=== PATIENT | male | born 1950 | race Caucasian/White ===

== ENCOUNTER 2018-09-28 08:20 | Day surgery (SDC) | payer BC ==
--- NOTE | 2018-09-26 17:22 | RAD REPORT ---
EXAM DESCRIPTION: RAD - Chest Pa And Lat (2 Views) - 09/26/2018 5:10 pm CLINICAL HISTORY: Preop chest, pending cardiac catheterization common no acute respiratory symptoms detailed COMPARISON: February 2013 TECHNIQUE: PA and lateral views of the chest were obtained. FINDINGS: The lungs are normal volume. No peripheral mass or consolidation. Heart size is normal. Up per lobe vasculature within normal limits. Interstitial markings in each lower lung field all are pro minent compared to the prior study. Over this long interval this could be progressive fibrosis. A mil d interstitial edema or infiltrate cannot be excluded if the patient has any respiratory symptoms. Si gnificant failure or volume overload are doubtful. No pleural effusion or pneumothorax seen. No ac luly bony finding noted. No aortic abnormality. IMPRESSION: No peripheral mass or consolidation seen. Heart size is normal. Interstitial markings at each base are prominent compared to 2012. This may be a new baseline for the patient. Mild interstitial edema or infiltrate would not be suspected without matching clinical pres entation.
[2018-09-26 17:49] LABS: Protime INR 0.96
[2018-09-26 17:57] LABS: Absolute Lymphocytes (CBC) 1.5 K/uL (0.7-4.9); Absolute Monocytes 0.6 K/uL (0.1-1.3); Absolute Neutrophil 4.9 K/uL (1.8-8.0); Hematocrit 49.8 % (39.6-49.0); Lymphocytes % 20.2 % (15.3-44.8); MCH 30.6 pg (27.0-35.0); MCV 89.7 fL (80-100); MPV 8.9 fL (7.6-11.3); Monocytes % 8.5 % (3.3-12.3); RBC Red Blood Cell Count 5.56 M/uL (4.33-5.43)
[2018-09-26 18:09] LABS: Potassium 4.2 mmol/L (3.5-5.1)
--- OUTSIDE RECORDS SUMMARY | 2018-09-28 08:24 | XMS REPORT | Continuity of Care Document ---
:1950 Author Organization Interface Problems Problem Status Onset Date Classification Date Comments Source Reported Medications Medication Details Route Status Patient Ordering Order Source Instructions Provider Date Allergies, Adverse Reactions, Alerts Substance Category Reaction Severity Reaction Status Date Comments Source type Reported Immunizations Immunization Date Given Site Status Last Updated Comments Source Results Order Results Value Reference Date Interpretation Comments Source Name Range Vital Signs Vital Sign Value Date Comments Source Encounters Location Location Encounter Encounter Reason Attending ADM DC Status Source Details Type Number For Provider Date Date Visit Outpatient [id number] [place] 09/01 [facility] Outpatient [id number] [place] 08/31 [facility] [place] Procedures Procedure Code Date Perfomer Comments Source
[2018-09-28] MEDS ORDERED: NA CHLORIDE 0.9% 500 ML ONE (08:32)
[2018-09-28] MEDS ORDERED: HEPA 1000U/500MLS 2,000 UNIT/1,000 ML BAG IV ONE (09:24)
[2018-09-28] MEDS ORDERED: FENTANYL CITR 100 MCG/2 ML ONE (09:25)
[2018-09-28] MEDS ORDERED: MIDAZOLAM HCL 2 MG/2 ML INJ ONE (09:25)
[2018-09-28 11:52] VITALS: BP 102/62; TEMP 98.4; O2SAT 97
--- NOTE | 2018-09-28 21:33 | OP ---
Surgeon: Ricardo Traore MD The patient of Dr. Pena. He is 68 years old. I have seen him in the past for coronary artery disease and stents and bypass. He came into the office with unstable angina, was scheduled to come in today as an outpatient for a heart catheterization today. He was [facility] 09/28/2018 , prepped and draped in the routine sterile fashion, given 4 mg of Versed and 100 mg of fentanyl for sedation. A 6-Burkinan sheath was introduced in the right common femoral artery. Angiogram there was normal. Angio-Seal was used to close the case. A 6-Burkinan Maria T catheter was used for the left ma in injection that showed 100% LAD, proximal 99% circumflex with an in-stent restenosis. A JR4 6-Fren ch Maria T was used and that revealed a normal right coronary artery, right dominant, very large vess el. Vein graft to the diagonal was patent and vein graft to the OM2 was patent. The distal anastomo sis of that graft with the [place] OM2 had a stent that was patent with 0% residual. The OSORIO was pat ent to the LAD. There were no complications. Blood Loss: 5 cc. Postoperative Diagnosis: Coronary artery disease, severe. Plan: Plan is for medical therapy. Operators: Ricardo Traore MD and Sabrina Frances. Total Conscious Sedation: 45 minutes. The patient will be sent home today after 2 hours of bedrest. I will see him in the office in 2 week sBuzz CABRERA/NORMA Voice ID: [id number] Report ID: [id number]
== END 2018-09-28 11:56 | disposition home or self-care (01) ==
LOC: CCL 08:20
PROC: B203YZZ Plain Radiography of Multiple Coronary Artery Bypass Grafts using Other Contrast (ICD-10-PCS; principal; 2018-09-28)
PROC: B208YZZ Plain Radiography of Left Internal Mammary Bypass Graft using Other Contrast (ICD-10-PCS; 2018-09-28)
DX: I25.110 Atherosclerotic heart disease of native coronary artery with unstable angina pectoris (principal); I25.700 Atherosclerosis of coronary artery bypass graft(s), unspecified, with unstable angina pectoris; I25.82 Chronic total occlusion of coronary artery; G47.33 Obstructive sleep apnea (adult) (pediatric); E78.6 Lipoprotein deficiency; Z95.5 Presence of coronary angioplasty implant and graft; Z87.891 Personal history of nicotine dependence; Z82.49 Family history of ischemic heart disease and other diseases of the circulatory system
CPT/HCPCS: 36415; 71046; 80048; 85025; 85610; 85730; 93455; C1760; C1893; J2250; J3010

== ENCOUNTER 2022-07-22 06:30 | Day surgery (SDC) | payer OTHER ==
--- NOTE | 2022-07-19 15:54 | RAD REPORT ---
EXAM DESCRIPTION: RAD - Chest Pa And Lat (2 Views) - 07/19/2022 3:41 pm CLINICAL HISTORY: PRE OPpending cardioversion COMPARISON: Two view chest September 2018 TECHNIQUE: Frontal and lateral views of the chest were obtained. FINDINGS: The lungs are clear of peripheral mass consolidation. No acute failure or volume overload seen. Patient has a prominent baseline interstitial pattern not clearly different from comparison. Sternotomy wires are in place. Trachea is in the midline. Mild left medical eventration is seen. Hea rt size is normal and central vasculature is within normal limits. No pleural effusion or pneumothor ax seen. No acute bony finding noted. No aortic abnormality. IMPRESSION: No acute cardiopulmonary process. Above detailed findings are similar to 2018 comparison.
[2022-07-19 16:05] LABS: Absolute Lymphocytes (CBC) 1.2 K/uL (0.7-4.9); Hematocrit 50.5 % (39.6-49.0); Lymphocytes % 14.3 % (15.3-44.8); MCV 89.8 fL (80-100); MPV 8.8 fL (7.6-11.3); RBC Red Blood Cell Count 5.63 M/uL (4.33-5.43)
[2022-07-19 16:06] LABS: Protime INR 1.19
[2022-07-19 16:20] LABS: Potassium 4.3 mmol/L (3.5-5.1)
[2022-07-19 16:23] LABS: SARS-CoV-2 Antigen Rapid Res Negative (Negative)
--- NOTE | 2022-07-20 08:15 | EKG ---
Test Date: 2022-07-19 Test Time: 15:05:45 Supervising Chef: MEHDI MEASUREMENT RESULTS: Intervals: Rate: 83 VA: QRSD: 90 QT: 370 QTc: 434 [place]: P: VA: QRS: 48 T: 127 INTERPRETIVE STATEMENTS: Atrial fibrillation with premature ventricular or aberrantly conducted complexes Cannot rule out Anterior infarct, age undetermined Abnormal ECG Compared to ECG 09/29/2017 17:22:10 Ventricular premature complex(es) now present Sinus rhythm no longer present Myocardial infarct finding still present Electronically Signed On 07-20-22 08:12:08 CDT by Ricardo Traore
[2022-07-22] MEDS ORDERED: FENTANYL CITR 100 MCG/2 ML ONE (07:00)
[2022-07-22] MEDS ORDERED: MIDAZOLAM HCL 10 ML ONE (07:01)
[2022-07-22] MEDS ORDERED: METOPROLOL TARTRATE 5 MG/5 ML INJ IV ONE (07:01)
[2022-07-22] MEDS ORDERED: ATROPINE SULF 1 MG/10 ML SYR IV ONE (07:01)
[2022-07-22] MEDS ORDERED: NA CHLORIDE 0.9% 500 ML ONE (07:26)
[2022-07-22] MEDS ORDERED: MIDAZOLAM HCL 2 MG/2 ML INJ ONE (07:35)
[2022-07-22] MEDS ORDERED: FLUMAZENIL 0.1 MG/ML (5 mL VIAL) IV ONE (07:35)
--- NOTE | 2022-07-22 09:22 | OP ---
Date of Procedure: 07/22/2022 Surgeon: Ricardo Traore MD Procedure: Direct current cardioversion. Indication: Atrial fibrillation. Mr. Bates is 72, history of atrial fibrillation that is new onset , on metoprolol and Eliquis with a fairly normal echocardiogram. No left atrial dilatation and no th rombus. Has been taking the anticoagulation for approximately 3 weeks. Has a history of CABG as wel l, hypertension, dyslipidemia. Procedure In Detail: Brought to the recovery room today as an outpatient. He received 9 mg of Verse d IV push, 1 shock of 200 joules and he converted to sinus rhythm. There were no complications or bl ood loss. Diagnosis: Successful direct current cardioversion from atrial fibrillation to sinus rhythm. We will continue metoprolol, continue Eliquis. If he goes back into atrial fibrillation, we will con carpenter assembler sotalol or amiodarone or ablation. Case was discussed with his . RICK/NORMA Voice ID: [id number] Report ID: [id number]
[2022-07-22 09:37] VITALS: BP 134/72; O2SAT 95
--- NOTE | 2022-07-23 13:59 | EKG ---
Test Date: 2022-07-22 Test Time: 08:00:48 Air Purifier Servicer: TW MEASUREMENT RESULTS: Intervals: Rate: 62 AK: 188 QRSD: 90 QT: 400 QTc: 406 [place]: P: 57 AK: 188 QRS: 52 T: 153 INTERPRETIVE STATEMENTS: Sinus rhythm with premature atrial complexes Nonspecific T wave abnormality Abnormal ECG Compared to ECG 07/19/2022 15:05:45 Atrial premature complex(es) now present T-wave abnormality now present Atrial fibrillation no longer present Ventricular premature complex(es) no longer present Myocardial infarct finding no longer present Electronically Signed On 07-23-22 13:57:45 CDT by Ariel Veras
== END 2022-07-22 09:15 | disposition home or self-care (01) ==
LOC: CCL 06:30
DX: I48.0 Paroxysmal atrial fibrillation (principal); I65.23 Occlusion and stenosis of bilateral carotid arteries; I25.110 Atherosclerotic heart disease of native coronary artery with unstable angina pectoris; I49.3 Ventricular premature depolarization; I10 Essential (primary) hypertension; G47.33 Obstructive sleep apnea (adult) (pediatric); E78.2 Mixed hyperlipidemia; E66.9 Obesity, unspecified; Z68.37 Body mass index [BMI] 37.0-37.9, adult; Z95.1 Presence of aortocoronary bypass graft; Z95.5 Presence of coronary angioplasty implant and graft; Z79.01 Long term (current) use of anticoagulants; Z79.899 Other long term (current) drug therapy; Z87.891 Personal history of nicotine dependence; Z20.822 Contact with and (suspected) exposure to COVID-19; Z82.49 Family history of ischemic heart disease and other diseases of the circulatory system
CPT/HCPCS: 36415; 71046; 80048; 85025; 85610; 85730; 87811; 92960; 93005; J2250; J3010; J7040

== ENCOUNTER 2022-12-16 12:18 | Day surgery (SDC) | payer OTHER ==
[2022-12-14 14:21] LABS: Absolute Lymphocytes (CBC) 1.3 K/uL (0.7-4.9); Hematocrit 50.4 % (39.6-49.0); MCV 89.5 fL (80-100); MPV 8.7 fL (7.6-11.3); RBC Red Blood Cell Count 5.63 M/uL (4.33-5.43)
[2022-12-14 14:25] LABS: Protime INR 1.42
[2022-12-14 14:31] LABS: Potassium 4.6 mmol/L (3.5-5.1)
--- NOTE | 2022-12-17 13:17 | EKG ---
Test Date: 2022-12-16 Test Time: 12:25:27 Director Of Global Marketing: JOSE MEASUREMENT RESULTS: Intervals: Rate: 49 IN: 206 QRSD: 98 QT: 470 QTc: 424 [place]: P: 41 IN: 206 QRS: 61 T: 113 INTERPRETIVE STATEMENTS: Marked sinus bradycardia with fusion complexes with ventricular escape complexes T wave abnormality, consider lateral ischemia Abnormal ECG Compared to ECG 07/22/2022 08:00:48 Fusion complex(es) now present Ventricular escape complex(es) now present Possible ischemia now present Sinus rhythm no longer present Atrial premature complex(es) no longer present T-wave abnormality still present Electronically Signed On 12-17-22 13:15:12 SURVEY ASSOCIATE by Ariel Veras
== END 2022-12-16 12:50 | disposition home or self-care (01) ==
LOC: CCL 12:18
PROVIDERS: ATTEND Internal Medicine
DX: I48.91 Unspecified atrial fibrillation (principal); Z53.8 Procedure and treatment not carried out for other reasons
CPT/HCPCS: 36415; 80048; 85025; 85610; 85730; 93005

== ENCOUNTER 2025-01-07 10:52 | Day surgery (SDC) | payer OTHER ==
--- NOTE | 2025-01-04 14:40 | RAD REPORT ---
Procedure: Chest Pa And Lat (2 Views) HISTORY: Preop for cardiac catheterization COMPARISON: 2021 FINDINGS: The lungs appear clear of acute infiltrate. No significant pleural effusion noted. The heart is mildly enlarged. Post surgical changes involve the chest IMPRESSION: No acute abnormality is displayed.
[2025-01-04 14:41] LABS: Absolute Basophils 0.1 K/uL (0-0.5); Absolute Eosinophils 0.1 K/uL (0-0.5); Absolute Lymphocytes (CBC) 1.7 K/uL (0.7-4.9); Absolute Monocytes 0.8 K/uL (0.1-1.3); Absolute Neutrophil 4.9 K/uL (1.8-8.0); Basophils % 1.3 % (0-1.3); Eosinophils % 1.9 % (0-4.4); Hematocrit 49.6 % (39.6-49.0); Hemoglobin 16.4 g/dL (13.6-17.9); Lymphocytes % 22.6 % (15.3-44.8); MCH 29.5 pg (27.0-35.0); MCV 89.4 fL (80-100); MPV 8.9 fL (7.6-11.3); Monocytes % 10.4 % (3.3-12.3); Neutrophils % 63.8 % (41.7-73.7); Nucleated Red Blood Cells % 0.1 % (0-0); Platelets 175 thou/uL (152-406); RBC Red Blood Cell Count 5.54 M/uL (4.33-5.43); Red Cell Distribution Width 15.2 % (12.1-15.2)
[2025-01-04 14:42] LABS: Anion Gap 6.8 mEq/L (5.0-15.0); Potassium 4.8 mEq/L (3.5-5.1)
[2025-01-04 14:44] LABS: PT Prothrombin Time 14.1 SECONDS (9.4-12.5); PTT, Activated Partial Thromb 42.9 SECONDS (24.3-36.9); Protime INR 1.35
[2025-01-07] MEDS ORDERED: NA CHLORIDE 0.9% 500 ML ONE (10:59)
[2025-01-07] MEDS ORDERED: HEPA 1000U/500MLS 2,000 UNIT/1,000 ML BAG IV ONE (11:11)
[2025-01-07] MEDS ORDERED: HEPARIN 10,000 UNIT/10 ML VIAL IV ONE ×2 (11:11→12:57)
[2025-01-07] MEDS ORDERED: LIDOCAINE 1% 20 ML MDV ONE (11:11)
[2025-01-07] MEDS ORDERED: MIDAZOLAM HCL 2 MG/2 ML INJ ONE (11:12)
[2025-01-07] MEDS ORDERED: CLOPIDOGREL 75 MG TABLET ONE (11:12)
[2025-01-07] MEDS ORDERED: TICAGRELOR 90 MG TABLET PO ONE (11:13)
[2025-01-07] MEDS ORDERED: ASPIRIN 325 MG TAB ONE (11:13)
[2025-01-07] MEDS ORDERED: FENTANYL CITR 100 MCG/2 ML ONE (11:13)
[2025-01-07] MEDS ORDERED: NALOXONE 0.4 MG/ML VIAL ONE (11:20)
[2025-01-07] MEDS ORDERED: FLUMAZENIL 0.1 MG/ML (5 mL VIAL) IV ONE (11:20)
[2025-01-07] MEDS ORDERED: ATROPINE SULF 1 MG/10 ML SYR IV ONE (11:20)
[2025-01-07 11:25] VITALS: TEMP 98.4
[2025-01-07] MEDS ORDERED: NITROGLYCERIN 0.4 MG/TAB SL ONE (13:32)
[2025-01-07 17:36] VITALS: BP 130/65; O2SAT 94
--- NOTE | 2025-01-11 19:27 | OP ---
Date of Procedure: 01/07/2025 Surgeon: LINN BAR Procedures Performed: 1. Selective coronary angiogram with bypass graft study. 2. PCI of severe distal RCA stenosis, used 3.5 x 16 mm, then 3.5 x 12 mm stent. 3. PCI of mid PLB branch severe stenosis, used 2.75 x 12 mm Synergy drug-eluting stent. 4. Failed PCI of OM1 branch. Indication: Unstable angina. Access: The right common femoral artery 6-[place] Konger closed with 6-[place] Angio-Seal. Complications: None. Bleeding: Less than 50 mL. Anesthesia: Total sedation time was 90 minutes, used fentanyl and Versed. Description Of Procedure: After risks, benefits, and alternatives were explained, the patient agreed to procedure and signed informed consent. The patient was brought into cardiac catheterization labo ratory, prepped and draped in a sterile fashion. Then, I accessed the right common femoral artery us ing micropuncture kit, ultrasound guidance, fluoroscopy; placed 6-[place] sheath and took 6-F rench JL4 diagnostic catheter over J-wire into the aortic root, engaged the left main, took standard views, and exchanged for 6-[place] JR4 catheter, engaged the RCA, SVG graft to OM and SVG to diagonal and OSORIO to LAD, took standard views, and then exchanged for 6-[place] JR4 guide, engaged the RCA, gav e systemic heparin to assure ACT level above 250, and took Runthrough wire into the RCA, placed it di stally, and first pre-dilated the PLB lesion and then placed 2.75 x 12 mm Synergy drug-eluting stent with excellent expansion, then pre-dilated the distal lesion using a 3.0 balloon, and lesion expanded very well, and then placed a 3.5 x 16 mm Synergy drug-eluting stent, and distally there was some haz iness, so placed another 3.5 x 12 mm Synergy drug-eluting stent with excellent expansion. Final anne ogram was satisfactory and removed the wire. Final angiogram was satisfactory. Then, removed the gu saad and the sheath, and 6-[place] Angio-Seal was used for closure with good hemostasis. Findings: 1. Coronary angiogram. a. Left main is normal. b. 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 c. The left circumflex proximal 90% stenosis, the OM has COLLECTION SYSTEMS ADMINISTRATOR ostially. d. RCA proximal 40%, mid 40% stenosis, distal 80% to 90% stenosis, status post successful PCI as above and the PLB in the mid segment has 90% stenosis, status post successful PCI. 2. Bypass graft study. a. Patent OSORIO to LAD. b. Patent SVG to diagonal 1. c. Patent SVG to OM, but with a slow flow as OM is 100% occluded. Then, we took a 6-Hong Konger EBU3. 5 guide into aortic root, engaged left main, and took Runthrough wire into the left circumflex into t he OM1 and I could not cross the stenosis. Decided to abort the PCI of the OM. Conclusion: 1. CTA of severe multivessel [place] coronary artery disease with patent SVG graft to diagonal 1 to OM and OSORIO to LAD. 2. Severe RCA disease in PLB, status post successful PCI as above. Plan: Dual antiplatelet therapy and high-dose statin. Follow up in the office in 1 week post discha rge. KIDD/NORMA Voice ID: [id number] Report ID: [id number]
== END 2025-01-07 17:40 | disposition home or self-care (01) ==
LOC: CCL 10:52
PROVIDERS: ATTEND Internal Medicine
DX: I25.110 Atherosclerotic heart disease of native coronary artery with unstable angina pectoris (principal); I25.82 Chronic total occlusion of coronary artery; I34.0 Nonrheumatic mitral (valve) insufficiency; I35.1 Nonrheumatic aortic (valve) insufficiency; I48.11 Longstanding persistent atrial fibrillation; I65.23 Occlusion and stenosis of bilateral carotid arteries; G47.33 Obstructive sleep apnea (adult) (pediatric); E78.2 Mixed hyperlipidemia; Z95.5 Presence of coronary angioplasty implant and graft; Z87.891 Personal history of nicotine dependence; Z79.01 Long term (current) use of anticoagulants; Z79.899 Other long term (current) drug therapy; Z82.49 Family history of ischemic heart disease and other diseases of the circulatory system
CPT/HCPCS: 85025; 80048; 36415; 85610; 82947; 85347 ×2; 85730; 71046; 93455; 76937; C1893; Q9967; C1725; C1877; C9601; C9600; J2003; J2250; J3010; J7040; 99152; 99153; J0461; J2310

== ENCOUNTER 2025-08-11 11:55 | Emergency (ER) | payer OTHER ==
[2025-08-11 13:30] LABS: Absolute Lymphocytes (CBC) 1.4 K/uL (0.7-4.9); Hematocrit 48.1 % (39.6-49.0); Hemoglobin 15.9 g/dL (13.6-17.9); MCH 29.5 pg (27.0-35.0); MCHC 33.0 g/dL (32.0-36.0); MCV 89.3 fL (80-100); MPV 8.7 fL (7.6-11.3); Nucleated RBC Absolute Count 0.0 (0-0); Nucleated Red Blood Cells % 0.0 % (0-0); RBC Red Blood Cell Count 5.39 M/uL (4.33-5.43); White Blood Count 8.50 thou/uL (4.3-10.9)
[2025-08-11 13:42] LABS: PT Prothrombin Time 14.4 SECONDS (10-13.0); PTT, Activated Partial Thromb 32.2 SECONDS (27.2-37.4); Protime INR 1.28
[2025-08-11 13:50] LABS: ALT/SGPT 37.0 U/L (16-61); AST/SGOT 25.0 U/L (15-37); Albumin 3.5 g/dL (3.4-5.0); Albumin/Globulin Ratio 1.0 (1.1-1.8); Alkaline Phosphatase 36.0 U/L (45-117); Anion Gap 8.8 mEq/L (5.0-15.0); BUN Blood Urea Nitrogen 21.0 mg/dL (7-18); Globulin 3.4 g/dL (2.3-3.5); Glucose Level 186.0 mg/dL (74-106); Lipase 22.0 U/L (13-75); Potassium 4.8 mEq/L (3.5-5.1)
--- NOTE | 2025-08-11 15:10 | RAD REPORT ---
EXAMINATION: Abdomen Pelvis Wo Contrast CLINICAL INDICATION: Male, 75 years old.LOWER GI BLEED TECHNIQUE: CTA abdomen and pelvis was performed, before and after the administration of IV contrast, as per department protocol. MIPS were created. Axial, sagittal and coronal reconstructions were obtained. One or more of the following dose reduction techniques were used: Automated exposure contro l, adjustment of the mA and/or kV according to patient size, and/or iterative reconstruction. Unless otherwise specified, incidental findings do not require dedicated imaging follow-up. [id number]. COMPARISON: 08/11/2025 FINDINGS: LOWER CHEST: No acute process identified.No significant pericardial effusion. Aortic valve calcificat ions. UPPER GI: No significant abnormality. LIVER: No significant focal abnormality. GALLBLADDER/BILE DUCTS: No biliary ductal dilatation.? PANCREAS: No mass, ductal dilation, or cinda-pancreatic fluid. SPLEEN: Unremarkable. ADRENALS: No adrenal masses. KIDNEYS AND URETERS: No hydronephrosis.Low density and/or too small to characterize renal lesions whi ch are statistically benign.No renal calculi.No ureteral calculi. ABDOMINAL AORTA AND OTHER VESSELS: Moderate atherosclerotic changes without aortic aneurysm. PERITONEUM: No abnormal free fluid. No free air. LYMPH NODES: No pathologic lymphadenopathy. ABDOMINAL WALL: Unremarkable SMALL BOWEL/COLON: Dense contents present within the distal sigmoid and rectum. No evidence of active intraluminal bleeding. URINARY BLADDER: Circumferential thickening which may be secondary to chronic bladder outlet obstruct ion. [place] bladder calculus measuring 13 mm. REPRODUCTIVE ORGANS: Moderate prostatomegaly. Prominent vessels along the bladder apex. MUSCULOSKELETAL: Multilevel degenerative changes in the spine. No acute fracture. ADDITIONAL FINDINGS: None. IMPRESSION: Dense intraluminal contents within the distal sigmoid and rectum may be related to hematochezia. No e vidence of active intraluminal bleeding by CT. Moderate prostatomegaly. Likely chronic bilateral obstruction. [place] bladder calculus.
--- NOTE | 2025-08-11 15:48 | EDPHYS ---
Physician Documentation [facility] Name: Clay Bates III Age: 75 yrs Sex: Male : 1950 Arrival Date: 08/11/2025 Time: 11:55 Bed 25 Private MD: ED Physician Juan Carlos Moore HPI: 08/11 12:35 This 75 yrs old Male presents to ER via Unassigned with complaints of Bloody Stools, rn Urinary Problem. 12:35 Patient reports several bloody bowel movements, dark red, loose. Patient states he rn knows he ate 2 pieces of bad burrell yesterday. No fever or vomiting. No chills. Reports bloody diarrhea with abdominal cramping. On Eliquis. Recently had prostate biopsy and had hematuria briefly but reports clearing. Denies dyspnea or dizziness.. Historical: - Allergies: 12:36 No Known Allergies; jl7 - Home Meds: 12:36 Eliquis oral [Active]; jl7 - PMHx: 12:36 Atrial fibrillation; jl7 - Immunization history:: Adult Immunizations unknown. - Infectious Disease History:: Denies. - Family history:: not pertinent. - Social history:: Smoking status: Patient denies any tobacco usage or history of. - Hospitalizations: : No recent hospitalization is reported. ROS: 12:35 Constitutional: Negative for fever, chills, and weight loss, Cardiovascular: Negative rn for chest pain, palpitations, and edema, Respiratory: Negative for shortness of breath, cough, wheezing, and pleuritic chest pain, Abdomen/GI: Positive for GI bleeding and abdominal cramping MS/Extremity: Negative for injury and deformity, Skin: Negative for injury, rash, and discoloration, Neuro: Positive for generalized malaise Exam: 12:35 Constitutional: This is a well developed, well nourished patient who is awake, alert, rn and in no acute distress. Cardiovascular: Regular rate and rhythm. No pulse deficits. Respiratory: No increased work of breathing, no retractions or nasal flaring. Abdomen/GI: Soft, non-tender MS/ Extremity: Pulses equal, no cyanosis. Neuro: Awake and alert, GCS 15 Vital Signs: 12:28 BP 140 / 78; Pulse 75; Resp 18; Pulse Ox 96% ; kj2 13:30 BP 119 / 62; Pulse 70; Resp 18; Pulse Ox 94% on R/A; kj2 14:30 BP 110 / 70; Pulse 70; Resp 20; Pulse Ox 98% on R/A; kj2 16:26 BP 115 / 73; Pulse 72; Resp 18; Pulse Ox 98% on R/A; kj2 17:44 BP 110 / 76; Pulse 71; Resp 20; Pulse Ox 96% on R/A; kj2 18:20 BP 112 / 67; Pulse 68; Resp 18; Temp 98; Pulse Ox 97% ; kj2 MDM: 12:00 Medical Screening Exam initiated rn 15:46 Differential diagnosis: diverticulitis, Lower GI bleed, AVM, diverticulosis. Data rn reviewed: vital signs, nurses notes, lab test result(s), radiologic studies, CT scan, and as a result, I will admit patient. Consideration of Admission/Observation Patient was admitted/placed on observation. Escalation of care including admission/observation considered. Independent interpretation of the following test(s) in the Emergency Department CT Scan: My interpretation is CT scan images negative for pneumoperitoneum per my interpretation, no obvious infection noted.. Care significantly affected by the following chronic conditions: Atrial fibrillation and on Eliquis. Counseling: I had a detailed discussion with the patient and/or guardian regarding the historical points, exam findings, and any diagnostic results supporting the discharge/admit diagnosis, lab results, radiology results, the need to transfer to another facility, for higher level of care, [facility] does not immediately have the required specialist. ED course: Normal H\T\H, CT angiogram is showing hyperdense material in the sigmoid colon, no GI here, will transfer for GI evaluation given unlikely to stop on its own on Eliquis. Patient has now had 4-5 bloody bowel movements since this morning.. 08/11 12:31 Order name: CBC with Diff; Complete Time: 14: rn 08/11 12:31 Order name: CMP; Complete Time: 14: rn 08/11 12:31 Order name: Lipase; Complete Time: 14: rn 08/11 12:31 Order name: Protime (+inr); Complete Time: 14: rn 08/11 12:31 Order name: Ptt, Activated; Complete Time: 14: rn 08/11 12:31 Order name: Lactate w/ 2H reflex if indic.; Complete Time: 14:08 rn 08/11 12:31 Order name: Type And Screen; Complete Time: 18:17 rn 08/11 12:31 Order name: CT Abdomen - Angio: Abdomen and pelvis angio; Complete Time: 15:24 rn 08/11 13:42 Order name: Pelvis Angio; Complete Time: 15:24 EDIN 08/11 13:42 Order name: Abdomen ; Complete Time: 15:24 EDIN 08/11 12:31 Order name: IV Saline Lock; Complete Time: 13:49 rn 08/11 12:31 Order name: Labs collected and sent; Complete Time: 13:49 rn 08/11 16:05 Order name: NPO; Complete Time: 16:13 rn Administered Medications: No medications were administered Disposition Summary: 08/11/25 15:48 Transfer Ordered Notes: Transfer Location: [facility] rn Reason: Higher level of care rn Condition: Stable rn Problem: new rn Symptoms: have improved rn Accepting Physician: (08/11/25 18:45) kj2 Diagnosis - GI Bleed/ Gastrointestinal hemorrhage, unspecified rn Forms: - Medication Reconciliation Form rn - SBAR form rn Signatures: Dispatcher [employer] EDIN Juan Carlos Moore MD MD rn Leal, Jahala RN RN jl7 Elizabeth Johnson RN RN kj2 Corrections: (The following items were deleted from the chart) 12:31 12:31 Abdomen Angio+CT.RAD.BRZ ordered. [facility] EDIN 12:31 12:31 TYPE AND SCREEN+BB.LAB.BRZ ordered. [facility] EDIN 12:36 12:35 Patient reports several bloody bowel movements, dark red, loose. Patient states rn he knows he ate 2 pieces of bad burrell yesterday. No fever or vomiting. No chills. Reports bloody diarrhea with abdominal cramping. On Eliquis. Recently had prostate biopsy and had hematuria briefly but reports clearing.. rn 18:45 15:48 rn kj2
--- NOTE | 2025-08-11 15:48 | ER ---
Nurse's Notes [facility] Name: Clay Bates III Age: 75 yrs Sex: Male : 1950 Arrival Date: 08/11/2025 Time: 11:55 Bed 25 Private MD: Diagnosis: GI Bleed/ Gastrointestinal hemorrhage, unspecified Presentation: 08/11 12:28 Acuity: ARVIND 3 kj2 12:36 Chief complaint: Patient states: Woke this morning with bloody stools, bright red. jl7 Coronavirus screen: At this time, the client does not indicate any symptoms associated with coronavirus-19. Ebola Screen: No symptoms or risks identified at this time. Initial Sepsis Screen: Does the patient meet any 2 criteria? No. Patient's initial sepsis screen is negative. Does the patient have a suspected source of infection? No. Patient's initial sepsis screen is negative. Risk Assessment: Do you want to hurt yourself or someone else? Patient reports no desire to harm self or others. Onset of symptoms was August 11, 2025. 12:36 Method Of Arrival: Wheelchair jl7 Triage Assessment: 12:36 General: Appears in no apparent distress. uncomfortable, Behavior is calm, cooperative, jl7 appropriate for age. Pain: Denies pain. GI: Reports bloody stool. Historical: - Allergies: 12:36 No Known Allergies; jl7 - Home Meds: 12:36 Eliquis oral [Active]; jl7 - PMHx: 12:36 Atrial fibrillation; jl7 - Immunization history:: Adult Immunizations unknown. - Infectious Disease History:: Denies. - Family history:: not pertinent. - Social history:: Smoking status: Patient denies any tobacco usage or history of. - Hospitalizations: : No recent hospitalization is reported. Screenin:27 [facility] ED Fall Risk Assessment (Adult) History of falling in the last 3 months, kj2 including since admission No falls in past 3 months (0 pts) Confusion or Disorientation No (0 pts) Intoxicated or Sedated No (0 pts) Impaired Gait No (0 pts) Mobility Assist Device Used No (0 pt) Altered Elimination No (0 pt) Score/Fall Risk Level 0 - 2 = Low Risk Maintained a safe environment, Hourly rounding (assess needs \T\ fall precautionary measures) done. Abuse screen: Denies threats or abuse. Denies injuries from another. Nutritional screening: No deficits noted. Tuberculosis screening: No symptoms or risk factors identified. Assessment: 12:40 General: Appears in no apparent distress. Behavior is cooperative. Pain:. Neuro: Level kj2 of Consciousness is awake, alert, obeys commands, Oriented to person, place. Cardiovascular: Patient's skin is warm and dry. Respiratory: Airway is patent. GI: Reports bloody stool, since this morning. : No signs and/or symptoms were reported regarding the genitourinary system. 13:30 Reassessment: Patient appears in no apparent distress at this time. Patient and/or kj2 family updated on plan of care and expected duration. Pain level reassessed. Patient is alert, oriented x 3, equal unlabored respirations, skin warm/dry/pink. 14:27 Reassessment: Patient appears in no apparent distress at this time. kj2 15:30 Reassessment: Patient appears in no apparent distress at this time. Patient and/or kj2 family updated on plan of care and expected duration. Pain level reassessed. Patient is alert, oriented x 3, equal unlabored respirations, skin warm/dry/pink. 16:25 Reassessment: 1st attempt placed on hold, no answer. kj2 16:27 Reassessment: Patient appears in no apparent distress at this time. Patient and/or kj2 family updated on plan of care and expected duration. Pain level reassessed. Patient is alert, oriented x 3, equal unlabored respirations, skin warm/dry/pink. 16:36 Reassessment: no answer to phone 2nd attempt for report. kj2 17:43 Reassessment: Patient appears in no apparent distress at this time. Patient and/or kj2 family updated on plan of care and expected duration. Pain level reassessed. Patient is alert, oriented x 3, equal unlabored respirations, skin warm/dry/pink. report given to ADRI [facility]. 18:20 Reassessment: Patient and/or family updated on plan of care and expected duration. Pain kj2 level reassessed. Vital Signs: 12:28 BP 140 / 78; Pulse 75; Resp 18; Pulse Ox 96% ; kj2 13:30 BP 119 / 62; Pulse 70; Resp 18; Pulse Ox 94% on R/A; kj2 14:30 BP 110 / 70; Pulse 70; Resp 20; Pulse Ox 98% on R/A; kj2 16:26 BP 115 / 73; Pulse 72; Resp 18; Pulse Ox 98% on R/A; kj2 17:44 BP 110 / 76; Pulse 71; Resp 20; Pulse Ox 96% on R/A; kj2 18:20 BP 112 / 67; Pulse 68; Resp 18; Temp 98; Pulse Ox 97% ; kj2 ED Course: 11:59 Patient arrived in ED. ts1 12:00 Juan Carlos Moore MD is Attending Physician. rn 12:26 Elizabeth Johnson RN is Primary Nurse. kj2 12:27 Patient has correct armband on for positive identification. Bed in low position. Call kj2 light in reach. Provided Education on: call light. 12:28 Triage completed. kj2 12:36 Arm band placed on right wrist. jl7 13:48 Initial lab(s) drawn, by ma, sent to lab. Inserted saline lock: 20 gauge in left rk3 antecubital area, using aseptic technique. Blood collected. Flushed with 10 mL NS. 14:49 CT Abdomen - Angio: Abdomen and pelvis angio In Process Unspecified. EDMS 14:49 Pelvis Angio In Process Unspecified. EDMS 14:49 Abdomen In Process Unspecified. EDMS 15:41 initiated a transfer with King from the [facility]. eb 16:04 connected the hospitalist child welfare consultant for [facility] with Dr. Moore for patient eb transfer consultation. 16:13 administrative approval given by King Rosario/ patient has been accepted to [facility] A-[id number] / Dr. Macy Bowman has accepted the patient in transfer/ report to be called to [phone]. 18:20 No provider procedures requiring assistance completed. Patient transferred, IV remains kj2 in place. Administered Medications: No medications were administered Medication: 14:12 VIS not applicable for this client. kj2 Outcome: 15:48 ER care complete, transfer ordered by . rn 18:20 Transferred by ground EMS kj2 18:20 Condition: stable 18:20 Instructed on the need for transfer, 18:45 Patient left the ED. kj2 Signatures: Dispatcher [employer] EDMS Juan Carlos Moore MD MD rn Leal, Jahala, RN RN jl7 Deysi Michelle Tanya, PAS PAS ts1 Elizabeth Johnson, RN RN kj2 Doreen Stout rk3 Corrections: (The following items were deleted from the chart) 16:34 15:30 Reassessment: Patient and/or family updated on plan of care and expected kj2 duration. Pain level reassessed. Patient is alert, oriented x 3, equal unlabored respirations, skin warm/dry/pink. kj2
[2025-08-11 19:51] VITALS: BP 112/67; TEMP 98; O2SAT 97
== END 2025-08-11 18:45 | disposition short-term general hospital (02) ==
LOC: ER 11:55
DX: K92.2 Gastrointestinal hemorrhage, unspecified (principal); I48.11 Longstanding persistent atrial fibrillation; Z79.01 Long term (current) use of anticoagulants
CPT/HCPCS: 85025; 36415; 86900; 86850; 85610; 86901; 83605; 85730; 83690; 80053; 72191; 74175; 74176; 99285; Q9967; 74174

== ENCOUNTER 2025-08-15 12:13 | Inpatient (IN) | payer OTHER ==
--- NOTE | 2025-08-15 13:50 | RAD REPORT ---
EXAMINATION: ONE VIEW CHEST XR CLINICAL INDICATION: CHEST PAIN TECHNIQUE: Frontal chest projection is submitted. Examination is limited by patient positioning and t echnique. COMPARISON: 01/04/2025 FINDINGS: Mild interstitial prominence seen suggestive of mild interstitial pulmonary edema. The heart is upper limit of normal in size. No displaced fractures identified. Sternotomy wires IMPRESSION: Mild CHF.
[2025-08-15 13:55] LABS: PT Prothrombin Time 13.1 SECONDS (10-13.0); Protime INR 1.16
[2025-08-15 14:06] LABS: Anion Gap 4.8 mEq/L (5.0-15.0); BUN Blood Urea Nitrogen 19.0 mg/dL (7-18); Glucose Level 109.0 mg/dL (74-106); NT PRO-BNP 1466.0 pg/mL (<125); Potassium 3.8 mEq/L (3.5-5.1)
[2025-08-15 14:14] LABS: Troponin High Sensitivity 1610.4 pg/mL (<58.9)
--- NOTE | 2025-08-15 14:30 | ER ---
Nurse's Notes [facility] Name: Clay Bates III Age: 75 yrs Sex: Male : 1950 Arrival Date: 08/15/2025 Time: 12:13 Bed 18 Private MD: Diagnosis: Subsequent non-ST elevation (NSTEMI) myocardial infarction Presentation: 08/15 12:40 Chief complaint: Patient states: Seen last week for GI bleed and sent to [facility]. me1 Stopped blood thinners and is still off of them. c/o mid sternal cp since Tuesday, 12/31 "tight". Denies SOB. Coronavirus screen: At this time, the client does not indicate any symptoms associated with coronavirus-19. Ebola Screen: No symptoms or risks identified at this time. Initial Sepsis Screen: Does the patient meet any 2 criteria? No. Patient's initial sepsis screen is negative. Does the patient have a suspected source of infection? No. Patient's initial sepsis screen is negative. Risk Assessment: Do you want to hurt yourself or someone else? Patient reports no desire to harm self or others. Onset of symptoms is unknown. 12:40 Method Of Arrival: Ambulatory ct1 12:40 Acuity: ARVIND 2 me1 Historical: - Allergies: 12:46 No Known Allergies; me1 - PMHx: 12:46 Atrial fibrillation; GI bleed (Unknown); Myocardial infarction; me1 - PSHx: 12:46 ablation (Atrial fibrillation); Coronary artery bypass graft; Coronary Angioplasty; me1 - Immunization history:: Adult Immunizations up to date. - Infectious Disease History:: Denies. - Social history:: Smoking status: Patient/guardian denies using tobacco, but has a distant history of tobacco abuse. - Family history:: not pertinent. - Hospitalizations: : No recent hospitalization is reported. Screenin:30 [facility] ED Fall Risk Assessment (Adult) History of falling in the last 3 months, rg5 including since admission No falls in past 3 months (0 pts) Confusion or Disorientation No (0 pts) Intoxicated or Sedated No (0 pts) Impaired Gait Yes (1 pt) Mobility Assist Device Used Yes (1 pt) Altered Elimination No (0 pt) Score/Fall Risk Level 0 - 2 = Low Risk Oriented to surroundings, Maintained a safe environment, Provided non-skid footwear, Hourly rounding (assess needs \\T\\ fall precautionary measures) done. Abuse screen: Denies threats or abuse. Nutritional screening: No deficits noted. Tuberculosis screening: No symptoms or risk factors identified. Assessment: 13:30 General: Appears in no apparent distress. comfortable, Behavior is calm, cooperative, rg5 appropriate for age. Pain: Complains of pain in chest Quality of pain is described as dull. 13:30 Neuro: Level of Consciousness is awake, alert, obeys commands, Oriented to person, rg5 place, time, situation. Cardiovascular: Reports chest pain, Patient's skin is warm and dry. Respiratory: Airway is patent Trachea midline Respiratory effort is even, unlabored. GI: Abdomen is round non-distended, Abd is soft and non tender. : No signs and/or symptoms were reported regarding the genitourinary system. EENT: No signs and/or symptoms were reported regarding the EENT system. Derm: Skin is intact, Skin is dry, Skin is normal. Musculoskeletal: Circulation, motion, and sensation intact. Range of motion:. 14:40 Reassessment: No changes from previously documented assessment. Patient and/or family rg5 updated on plan of care and expected duration. Pain level reassessed. Patient is alert, oriented x 3, equal unlabored respirations, skin warm/dry/pink. Vital Signs: 12:40 BP 121 / 60; Pulse 72; Resp 17; Temp 98.3; Pulse Ox 98% ; Weight 125.65 kg; Height 6 me1 ft. 0 in. ; Pain 2/10; 13:30 BP 100 / 59; Pulse 68; Resp 18; Pulse Ox 100% ; Pain 3/10; rg5 14:10 BP 104 / 48; Pulse 71; Resp 18; Pulse Ox 98% ; rg5 12:40 Body Mass Index 37.57 (125.65 kg, 182.88 cm) me1 12:40 Pain Scale: Adult me1 13:30 Pain Scale: Adult rg5 ED Course: 12:18 Patient arrived in ED. cj3 12:22 Juan Carlos Moore MD is Attending Physician. rn 12:46 Triage completed. me1 12:46 Arm band placed on Patient placed in waiting room. me1 13:06 Clive Haywood, ADRI is Primary Nurse. rg5 13:20 XRAY Chest (1 view) In Process Unspecified. EDMS 13:30 Patient has correct armband on for positive identification. Bed in low position. Call rg5 light in reach. Side rails up X 1. Client placed on continuous cardiac and pulse oximetry monitoring. NIBP monitoring applied. green promotions specialist on. Pulse ox on. NIBP on. Door closed. Noise minimized. 13:30 No provider procedures requiring assistance completed. Inserted saline lock: 20 gauge rg5 in right antecubital area, using aseptic technique. Blood collected. Flushed with 10 mL NS. Patient maintains SpO2 saturation greater than 95% on room air. 14:29 Yoshi Esquivel MD is Hospitalizing Provider. rn 15:00 Patient admitted, IV remains in place. intact, No redness/swelling at site. rg5 Administered Medications: 15:00 Drug: Aspirin PO Chewable Tablet 324 mg PO once; 81 mg tablets x 4 Route: PO; rg5 15:10 Follow up: Response: No adverse reaction rg5 15:00 Drug: Pantoprazole IVP 40 mg IVP once Route: IVP; Site: right antecubital; rg5 15:15 Follow up: Response: No adverse reaction rg5 15:10 Drug: Heparin (TX-Bolus No thrombolytic) - HEParin IVP 60 units/kg IVP once; Max 5000 rg5 units {Co-Signature: yanet (Kristine Arenas RN).} Route: IVP; Site: right antecubital; 15:10 Follow up: Response: No adverse reaction rg5 15:12 Drug: Heparin (TX Drip) 12 units/kg/[place] - ([place] [address] units, D5W IV 500 ml) IV at rg5 calculated rate Per protocol; Max initial rate 1000 units/hr {Co-Signature: hb (Kristine Arenas RN).} Route: IV; Rate: calculated rate; Site: right antecubital; 15:15 Follow up: IV Status: Infusion continued upon admission rg5 Medication: 13:30 VIS not applicable for this client. rg5 Outcome: 14:30 Decision to Hospitalize by Provider. rn 15:45 Admitted to ICU accompanied by nurse, via stretcher, on monitor, rg5 15:45 Condition: stable 15:45 Instructed on the need for admit, 15:59 Patient left the ED. rg5 Signatures: Dispatcher [employer] EDMS Moore Juan Carlos, MD MD rn Eddleman, Soo, RN RN me1 Clive Haywood RN RN 5 Litzy Tejada 3 Kristine Arenas RN Corrections: (The following items were deleted from the chart) 12:47 12:46 PSHx: Coronary artery bypass graft; me1 me1
--- NOTE | 2025-08-15 14:30 | EDPHYS ---
Physician Documentation [facility] Name: Clay Bates III Age: 75 yrs Sex: Male : 1950 Arrival Date: 08/15/2025 Time: 12:13 Bed 18 Private MD: ED Physician Juan Carlos Moore HPI: 08/15 13:32 This 75 yrs old Male presents to ER via Ambulatory with complaints of SENT BY YOSVANY. rn 13:32 Patient sent in by Dr. Veras for admission for evaluation of chest pain. Patient rn recently had GI bleed, taken off of his antiplatelet and Eliquis medication. Patient reports chest pain with exertion, not happening more frequently and not at rest. Nitroglycerin is helping chest pain.. Historical: - Allergies: 12:46 No Known Allergies; me1 - PMHx: 12:46 Atrial fibrillation; GI bleed (Unknown); Myocardial infarction; me1 - PSHx: 12:46 ablation (Atrial fibrillation); Coronary artery bypass graft; Coronary Angioplasty; me1 - Immunization history:: Adult Immunizations up to date. - Infectious Disease History:: Denies. - Social history:: Smoking status: Patient/guardian denies using tobacco, but has a distant history of tobacco abuse. - Family history:: not pertinent. - Hospitalizations: : No recent hospitalization is reported. ROS: 13:32 Constitutional: Negative for fever, chills, and weight loss, Cardiovascular: Negative rn for palpitations, and edema, Respiratory: Negative for shortness of breath, cough, wheezing, and pleuritic chest pain, Abdomen/GI: Negative for abdominal pain, nausea, vomiting, diarrhea, and constipation, MS/Extremity: Negative for injury and deformity, Skin: Negative for injury, rash, and discoloration, Neuro: Negative for headache, weakness, numbness, tingling, and seizure, Exam: 13:32 Constitutional: This is a well developed, well nourished patient who is awake, alert, rn and in no acute distress. Cardiovascular: Regular rate and rhythm. No pulse deficits. Respiratory: No increased work of breathing, no retractions or nasal flaring. Abdomen/GI: Soft, non-tender MS/ Extremity: Pulses equal, no cyanosis Neuro: Awake and alert, GCS 15 15:38 ECG was reviewed by the Attending Physician. rn Vital Signs: 12:40 BP 121 / 60; Pulse 72; Resp 17; Temp 98.3; Pulse Ox 98% ; Weight 125.65 kg; Height 6 me1 ft. 0 in. ; Pain 2/10; 13:30 BP 100 / 59; Pulse 68; Resp 18; Pulse Ox 100% ; Pain 3/10; rg5 14:10 BP 104 / 48; Pulse 71; Resp 18; Pulse Ox 98% ; rg5 12:40 Body Mass Index 37.57 (125.65 kg, 182.88 cm) me1 12:40 Pain Scale: Adult me1 13:30 Pain Scale: Adult rg5 MDM: 12:22 Medical Screening Exam initiated rn 14:24 Management of patient was discussed with the following: Requisition Approver: Discussed case with rn Dr. Gomez, recommends heparin infusion for non-STEMI, can stop if he starts to bleed.. 14:26 Differential diagnosis: acute myocardial infarction, acute pericarditis, coronary rn artery disease stable angina, unstable angina. HEART Score: History: Highly Suspicious (2), ECG: Non specific repolarization disturbance / LBTB / PM (1), Age: > or = 65 years (2), Risk Factors: > or = 3 Risk factors for atherosclerotic disease (2), Troponin: > or = 3 x Normal Limit (2), Total Score = 9. The patient was given aspirin in the Emergency Department. Data reviewed: vital signs, nurses notes, lab test result(s), EKG, radiologic studies, plain films, and as a result, I will admit patient. Consideration of Admission/Observation Patient was admitted/placed on observation. Escalation of care including admission/observation considered. Independent interpretation of the following test(s) in the Emergency Department EKG: See my EKG interpretation above X-Ray: My interpretation is Chest x-ray images negative for pneumonia or pneumothorax per my interpretation. 14:28 Test considered but Not performed: Other Details Echo. Care significantly affected by rn the following chronic conditions: Atrial fibrillation, GI bleed. Counseling: I had a detailed discussion with the patient and/or guardian regarding the historical points, exam findings, and any diagnostic results supporting the discharge/admit diagnosis, lab results, radiology results, the need for further work-up and treatment in the hospital. 14:30 ED course: Care complicated by the fact that he had a recent GI bleed and taken off his rn anticoagulation, patient with non-STEMI and requires anticoagulation at this time. Will have to heparinize him in preparation for cath tomorrow, heparin can be stopped quickly if starts to bleed.. 08/15 12:22 Order name: Basic Metabolic Panel; Complete Time: 14:20 08/15 12:22 Order name: CBC with Diff 08/15 12:22 Order name: NT PRO-BNP; Complete Time: 14:20 08/15 12:22 Order name: PT-INR; Complete Time: 14:01 08/15 12:22 Order name: Troponin HS; Complete Time: 14:20 08/15 14:27 Order name: Ptt, Activated rg5 08/15 14:55 Order name: Basic Metabolic Panel [facility] 08/15 14:55 Order name: CBC with Automated Diff [facility] 08/15 14:55 Order name: Lipid Profile [facility] 08/15 14:55 Order name: Lipid Profile [facility] 08/15 14:55 Order name: Troponin High Sensitivity [facility] 08/15 14:55 Order name: Troponin High Sensitivity [facility] 08/15 14:55 Order name: Troponin High Sensitivity [facility] 08/15 14:55 Order name: Troponin High Sensitivity [facility] 08/15 14:55 Order name: Troponin High Sensitivity [facility] 08/15 12:22 Order name: XRAY Chest (1 view); Complete Time: 13:54 08/15 14:55 Order name: Echo with Doppler [facility] 08/15 12:22 Order name: EKG; Complete Time: 12:22 08/15 14:55 Order name: CONS Physician Consult [facility] 08/15 12:22 Order name: Cardiac monitoring; Complete Time: 13:49 08/15 12:22 Order name: EKG - Nurse/Tech; Complete Time: 14:12 08/15 12:22 Order name: IV Saline Lock; Complete Time: 13:49 rn 08/15 12:22 Order name: Labs collected and sent; Complete Time: 13:49 rn 08/15 12:22 Order name: O2 Per Protocol; Complete Time: 13:49 08/15 12:22 Order name: O2 Sat Monitoring; Complete Time: 13:49 rn EC:38 Rate is 63 beats/min. Rhythm is regular. QRS interval is prolonged at 140 msec. QT rn interval is normal. No Q waves. T waves are Normal. No ST changes noted. Clinical impression: NSR w/ Non-specific ST/T Changes. Interpreted by me. Reviewed by me. Administered Medications: 15:00 Drug: Aspirin PO Chewable Tablet 324 mg PO once; 81 mg tablets x 4 Route: PO; rg5 15:10 Follow up: Response: No adverse reaction rg5 15:00 Drug: Pantoprazole IVP 40 mg IVP once Route: IVP; Site: right antecubital; rg5 15:15 Follow up: Response: No adverse reaction rg5 15:10 Drug: Heparin (GA-Bolus No thrombolytic) - HEParin IVP 60 units/kg IVP once; Max 5000 rg5 units {Co-Signature: yanet (Kristine Arenas RN).} Route: IVP; Site: right antecubital; 15:10 Follow up: Response: No adverse reaction rg5 15:12 Drug: Heparin (GA Drip) 12 units/kg/[place] - ([place] [address] units, D5W IV 500 ml) IV at rg5 calculated rate Per protocol; Max initial rate 1000 units/hr {Co-Signature: yanet (Kristine Arenas RN).} Route: IV; Rate: calculated rate; Site: right antecubital; 15:15 Follow up: IV Status: Infusion continued upon admission rg5 Disposition: 14:28 Critical Care:. 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 Total time: 35 rn minutes Signatures: Dispatcher [employer] Juan Carlos Estrella MD MD rn [place]son, Breana [facility] Soo Davalos RN RN ia1 Clive Haywood RN RN 5 Arenas, Kristine RN hb Corrections: (The following items were deleted from the chart) 12:47 12:46 PSHx: Coronary artery bypass graft; me1 me1 15:03 14:30 Telemetry/MedSurg (Inpatient) pedro [email or web address] 15:03 14:30 [place]
[2025-08-15] MEDS ORDERED: HEPARIN/D5W 25,000 UNIT/500 ML BAG IV ONE (14:49)
[2025-08-15] MEDS ORDERED: HEPARIN 5000 UNIT/ML 1 ML VIAL ONE (14:49)
[2025-08-15] MEDS ORDERED: MORPHINE 4 MG/ML SYR IV PRN (14:49)
[2025-08-15] MEDS ORDERED: ASPIRIN 81 MG CHEWABLE TABLET ONE (14:49)
[2025-08-15] MEDS ORDERED: PANTOPRAZOLE 40 MG INJ ONE (14:54)
--- NOTE | 2025-08-15 14:58 | P.HP ---
Patient History Date of Service: 08/15/25 History of Present Illness: 75-year-old male sent by his beam racker for evaluation of chest pain. He states he had a heart cath in December. Over the last month he has been experiencing chest pain on and off. This past Tuesday he had a GI bleed at [facility] in [facility]. He was taken off his blood thinners and finally came home yesterday. He states last night he began to have chest pain. He took 2 night nitroglycerin tabs with no relief. He took an extra 2 more nitroglycerin tabs with no relief. He came to the hospital for further evaluation after visiting Dr. Veras. Associated symptoms include shortness of breath with exertion. He rates the pain at a 9 out of 10. The only thing that helps his chest pain is his nitroglycerin. The pain worsens with activity Allergies No Known Allergies Allergy (Verified 01/04/25 13:54) Home Medications: Apixaban [Eliquis] 5 mg PO BID 12/14/22 Finasteride [Proscar] 5 mg PO DAILY 12/14/22 Glimepiride 2 mg PO BID 12/14/22 Metoprolol Succinate [Toprol Xl] 100 mg PO BID 12/14/22 Tamsulosin HCl 0.4 mg PO DAILY 12/14/22 Aspirin 81 mg PO DAILY 08/15/25 Isosorbide Dinitrate 30 mg PO DAILY 08/15/25 Sotalol HCl [Betapace*] See Rx Instructions .ROUTE .COMPLEX 08/15/25 Ticagrelor [Brilinta] 90 mg PO BID 08/15/25 - Past Medical/Surgical History Diabetic: No - Social History Alcohol use: Yes CD- Drugs: No Caffeine use: No Review of Systems General: Sweats Eyes: Unremarkable ENT: Unremarkable Respiratory: Unremarkable Cardiovascular: Chest Pain Gastrointestinal: Unremarkable Genitourinary: Unremarkable Musculoskeletal: Unremarkable Integumentary: Unremarkable Neurological: Unremarkable Physical Examination - Physical Exam General: In no apparent distress HEENT: Normocephalic Neck: Supple Respiratory: Clear to auscultation bilaterally Cardiovascular: Normal pulses Capillary refill: <2 Seconds Gastrointestinal: Normal bowel sounds Integumentary: No rashes, No breakdown Neurological: Normal speech - Studies Laboratory Data (last 24 hrs) 08/15/25 08/15/25 08/15/25 13:40 13:40 13:40 PT 13.1 H INR 1.16 APTT 33.0 Sodium 142 Potassium 3.8 BUN 19 H Creatinine 1.03 Glucose 109 H Assessment and Plan - Plan NSTEMI HTN CAD hx of TN (CABG) Atrial fibrillation Anemia Admit to ICU Given aspirin and statin in the ED Start heparin drip Cardiology consulted, n.p.o. at midnight for coronary angiogram in the morning Continue amiodarone Continue Proscar Continue Toprol DVT prophylaxis with - Advance Directives Does patient have a Living Will: No Does patient have a Durable POA for Healthcare: No
[2025-08-15 15:06] LABS: Absolute Lymphocytes (CBC) 1.7 K/uL (0.7-4.9); Hematocrit 26.3 % (39.6-49.0); Hemoglobin 9.3 g/dL (13.6-17.9); MCH 31.4 pg (27.0-35.0); MCHC 35.3 g/dL (32.0-36.0); MCV 89.0 fL (80-100); MPV 8.4 fL (7.6-11.3); Nucleated RBC Absolute Count 0.0 (0-0); Nucleated Red Blood Cells % 0.6 % (0-0); RBC Red Blood Cell Count 2.95 M/uL (4.33-5.43); White Blood Count 7.60 thou/uL (4.3-10.9)
[2025-08-15 16:05] LABS: HDL Cholesterol 36.0 mg/dL (40-60); LDL Cholesterol, Calculated 76.0 mg/dL (<130); LDL Cholesterol,Calc NonReport 76.0
[2025-08-15 16:06] LABS: Troponin High Sensitivity 1727.0 pg/mL (<58.9)
[2025-08-15 16:10] VITALS: BMI 37.5
[2025-08-15] MEDS: HEPARIN/D5W 25,000 UNIT/500 ML BAG IV SCH (16:32)
[2025-08-15] MEDS: AMIODARONE HCL 200 MG TAB PO SCH (20:53)
[2025-08-16 06:14] LABS: Absolute Lymphocytes (CBC) 1.7 K/uL (0.7-4.9); Hematocrit 22.4 % (39.6-49.0); Hemoglobin 7.7 g/dL (13.6-17.9); MCH 30.6 pg (27.0-35.0); MCHC 34.2 g/dL (32.0-36.0); MCV 89.5 fL (80-100); MPV 8.4 fL (7.6-11.3); Nucleated RBC Absolute Count 0.0 (0-0); Nucleated Red Blood Cells % 0.3 % (0-0); RBC Red Blood Cell Count 2.51 M/uL (4.33-5.43); White Blood Count 5.70 thou/uL (4.3-10.9)
[2025-08-16 06:29] LABS: Anion Gap 8.7 mEq/L (5.0-15.0); BUN Blood Urea Nitrogen 16.0 mg/dL (7-18); Glucose Level 123.0 mg/dL (74-106); Potassium 3.7 mEq/L (3.5-5.1)
[2025-08-16] MEDS: NITROGLYCERIN 0.4 MG/TAB SL PRN (07:10)
[2025-08-16] MEDS: METOPROLOL XL 100 MG TAB PO SCH (08:50)
[2025-08-16] MEDS: ASPIRIN EC 81 MG TAB PO SCH (08:51)
[2025-08-16] MEDS: ALPRAZOLAM 0.25 MG TABLET PO PRN (08:51)
[2025-08-16] MEDS: FINASTERIDE 5 MG TAB PO SCH (08:51)
[2025-08-16 09:49] VITALS: O2SAT 94
[2025-08-16 11:11] VITALS: TEMP 97.9
--- NOTE | 2025-08-16 12:55 | P.PN ---
Date of Service: 08/16/25 Subjective: Resting comfortably in his bed. his is at bedside today. Denies any current chest pain. He is in agreement with transfer to [facility] [place] Review of Systems General: Sweats Eyes: Unremarkable ENT: Unremarkable Respiratory: Unremarkable Cardiovascular: Chest Pain Gastrointestinal: Unremarkable Genitourinary: Unremarkable Musculoskeletal: Unremarkable Integumentary: Unremarkable Neurological: Unremarkable Physical Examination - Physical Exam General: In no apparent distress HEENT: Normocephalic Neck: Supple Respiratory: Clear to auscultation bilaterally Cardiovascular: Normal pulses Capillary refill: <2 Seconds Gastrointestinal: Normal bowel sounds Integumentary: No rashes, No breakdown Neurological: Normal speech - Studies Laboratory Data (last 24 hrs) 08/15/25 08/15/25 08/15/25 13:40 13:40 13:40 PT 13.1 H INR 1.16 APTT 33.0 Sodium 142 Potassium 3.8 BUN 19 H Creatinine 1.03 Glucose 109 H Assessment and Plan - Plan NSTEMI HTN CAD hx of AK (CABG) Atrial fibrillation Anemia Thrombocytopenia 08/16 - Will transfer to [facility] for GI backup and cath, troponins trending up - Hemoglobin dropped from 9.3 to 7.7. No episodes of GI bleeding. Continue to monitor hemoglobin closely - Continue heparin drip - Continue amiodarone and metoprolol - Case discussed with cardiology and ICU nursing staff - Continuum Of Care Manager at [facility] has accepted the transfer, awaiting bed Admit to ICU Given aspirin and statin in the ED Start heparin drip Cardiology consulted, n.p.o. at midnight for coronary angiogram in the morning Continue amiodarone Continue Proscar Continue Toprol DVT prophylaxis with heparin
--- NOTE | 2025-08-16 13:12 | P.DS ---
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 He states he had a heart cath in December. Over the last month he has been experiencing chest pain on and off. This past Tuesday he had a GI bleed at [facility] in [facility]. He was taken off his blood thinners and finally came home yesterday. He states last night he began to have chest pain. He took 2 night nitroglycerin tabs with no relief. He took an extra 2 more nitroglycerin tabs with no relief. He came to the hospital for further evaluation after visiting Dr. Veras. Associated symptoms include shortness of breath with exertion. He rates the pain at a 9 out of 10. The only thing that helps his chest pain is his nitroglycerin. The pain worsens with activity Hospital Course: Review of Systems General: Sweats Eyes: Unremarkable ENT: Unremarkable Respiratory: Unremarkable Cardiovascular: Chest Pain Gastrointestinal: Unremarkable Genitourinary: Unremarkable Musculoskeletal: Unremarkable Integumentary: Unremarkable Neurological: Unremarkable Physical Examination - Physical Exam General: In no apparent distress HEENT: Normocephalic Neck: Supple Respiratory: Clear to auscultation bilaterally Cardiovascular: Normal pulses Capillary refill: <2 Seconds Gastrointestinal: Normal bowel sounds Integumentary: No rashes, No breakdown Neurological: Normal speech - Studies Laboratory Data (last 24 hrs) 08/15/25 08/15/25 08/15/25 13:40 13:40 13:40 PT 13.1 H INR 1.16 APTT 33.0 Sodium 142 Potassium 3.8 BUN 19 H Creatinine 1.03 Glucose 109 H Assessment and Plan - Plan NSTEMI HTN CAD hx of [place] (CABG) Atrial fibrillation Anemia Thrombocytopenia 08/16 - Will transfer to [facility] for GI backup and cath, troponins trending up - Hemoglobin dropped from 9.3 to 7.7. No episodes of GI bleeding. Continue to monitor hemoglobin closely - Continue heparin drip - Continue amiodarone and metoprolol - Case discussed with cardiology and ICU nursing staff - Residency Director at [facility] has accepted the transfer, awaiting bed Admit to ICU Given aspirin and statin in the ED Start heparin drip Cardiology consulted, n.p.o. at midnight for coronary angiogram in the morning Continue amiodarone Continue Proscar Continue Toprol DVT prophylaxis with heparin Vital Signs/Physical Exam: Temp Pulse Resp BP Pulse Ox 97.9 F 74 18 136/74 96 08/16/25 12:00 08/16/25 12:00 08/16/25 12:00 08/16/25 12:00 08/16/25 12:00 Laboratory Data at Discharge: WBC 5.70 thou/uL (4.3-10.9) 08/16/25 05:30 Hgb 7.7 g/dL (13.6-17.9) L D 08/16/25 05:30 Hct 22.4 % (39.6-49.0) L 08/16/25 05:30 Plt Count 140 thou/uL (152-406) L 08/16/25 05:30 PT 13.1 SECONDS (10-13.0) H 08/15/25 13:40 INR 1.16 08/15/25 13:40 APTT 68.1 SECONDS (27.2-37.4) H 08/16/25 10:15 Sodium 142 mEq/L (136-145) 08/16/25 05:30 Potassium 3.7 mEq/L (3.5-5.1) 08/16/25 05:30 BUN 16 mg/dL (7-18) 08/16/25 05:30 Creatinine 0.94 mg/dL (0.70-1.30) 08/16/25 05:30 Glucose 123 mg/dL (74-106) H 08/16/25 05:30 Triglycerides 100 mg/dL (<150) 08/15/25 15:35 Cholesterol 132 mg/dL (<200) 08/15/25 15:35 HDL Cholesterol 36 mg/dL (40-60) L 08/15/25 15:35 Cholesterol/HDL Ratio 3.67 08/15/25 15:35 Home Medications: Finasteride [Proscar*] 5 mg PO DAILY 12/14/22 Glimepiride 2 mg PO BID 12/14/22 Metoprolol Succinate [Toprol Xl*] 100 mg PO BID 12/14/22 Tamsulosin HCl 0.4 mg PO DAILY 12/14/22 Aspirin 81 mg PO DAILY 08/15/25 Isosorbide Dinitrate 30 mg PO DAILY 08/15/25 Sotalol HCl [Betapace*] See Rx Instructions .ROUTE .COMPLEX 08/15/25 Ticagrelor [Brilinta*] 90 mg PO BID 08/15/25 Followup: Lito Pena DO, DO [Primary Care Provider] -
[2025-08-16 15:34] VITALS: BP 154/86
--- NOTE | 2025-08-16 15:53 | CON ---
Date of Consultation: 08/16/2025 Reason For Consultation: Chest pain. History Of Present Illness: This is a 75-year-old male with known history of coronary artery disease . He has 3 grafts: OSORIO to LAD, SVG to diagonal, SVG to OM, and they were patent within the past ye ar. He had severe RCA disease, status post complex intervention on the PL and on the RCA. He also h ad recent GI bleed where he was admitted to [facility] in [place]. He has been having chest pain with mi nimal activities and even at rest, pressure-like, radiation to left upper extremity, on and off, resp onds well to nitroglycerin. Past Medical History: Coronary artery disease, dyslipidemia, hypertension, atrial fibrillation, anem ia, and GI bleed. Medications: Refer to reconciliation sheet for detailed list. Allergies: NO KNOWN DRUG ALLERGIES. Family History: No premature coronary artery disease or cancer. Social History: He does not smoke or drink. Does not use any drugs. Review of Systems: All systems reviewed and they were negative except as mentioned in the HPI. Physical Examination: Vitals Signs: Reviewed. Head and Neck: Pupils are equal, reactive to light. Intact eye movements. No JVD. No cervical lym phadenopathy. Neck is supple. Thyroid is not enlarged. Lungs: Clear to auscultation bilaterally. No rhonchi, wheezing, or crackles. No accessory muscle u se. Heart: Regular rate and rhythm. No extra sounds. Abdomen: Soft, nontender. Bowel sounds positive. No organomegaly. No masses or hernia. No rigidi ty or rebound. Extremities: No edema, clubbing, or cyanosis. Intact pulses. Skin: No rash. No nodule. Neurologic: Alert, awake, oriented x3. No acute focal deficits appreciated. Investigations: Troponin peaked at 1600, and BUN of 16, creatinine 0.94, and hemoglobin is 7.7 down from 9.3. Assessment And Recommendations: 1. [id number] myocardial infarction. Was placed on heparin drip appropriately and should be on dual antiplatelet therapy. Continue baby aspirin and add Brilinta 90 mg twice a day, and the patien t needs coronary angiogram. However, he had significant drop in his hemoglobin and recent GI bleed, I recommend this patient to be transferred to a higher level of care facility where a GI team and car diology team can collaborate to manage this patient. In the interim, continue IV heparin and start I V nitroglycerin if pain becomes frequent and continue to monitor troponin. 2. Atrial fibrillation. He is in sinus now. Continue current therapy with amiodarone, off the antic oagulant now, on IV heparin. 3. Gastrointestinal bleed recently with significant drop in his hemoglobin. Recommended transfer for GI evaluation prior to the PCI at the same time as the patient will need intervention of his coronar y arteries soon, but there is a major concern of blood loss. 4. Dyslipidemia. I recommend high-dose statin, atorvastatin 40 mg q.h.s. Discussed the case in detail with the primary hospitalist and recommended transferring to [facility] for further management. /NORMA Voice ID: [id number] Report ID: [id number]
== END 2025-08-16 15:27 | disposition short-term general hospital (02) | DRG 281 ==
LOC: ER 12:13 → 3RD-ICU 14:49
PROVIDERS: ADMIT Family Medicine; ATTEND Family Medicine
DX: I21.4 Non-ST elevation (NSTEMI) myocardial infarction (principal); K92.2 Gastrointestinal hemorrhage, unspecified; D64.9 Anemia, unspecified; I48.91 Unspecified atrial fibrillation; I10 Essential (primary) hypertension; D69.6 Thrombocytopenia, unspecified; E78.5 Hyperlipidemia, unspecified; I25.2 Old myocardial infarction; I25.10 Atherosclerotic heart disease of native coronary artery without angina pectoris; Z95.1 Presence of aortocoronary bypass graft; Z87.891 Personal history of nicotine dependence; Z79.01 Long term (current) use of anticoagulants; Z79.84 Long term (current) use of oral hypoglycemic drugs; Z79.82 Long term (current) use of aspirin; Z79.899 Other long term (current) drug therapy
CPT/HCPCS: 36415; 71045; 80048; 80061; 82947; 83880; 84484; 85018; 85025; 85610; 85730; 93005; 93306; 94760; 96374; 96375; 99285; J1644; J2470